=== PATIENT | male | born 1985 | race African-American/Black ===

== ENCOUNTER 2016-08-30 02:30 | Emergency (ER) | payer SELFPAY ==
[~2016-08-30] VITALS: Ht 172.7 cm; Wt 66.6 kg
[2016-08-30 02:34] VITALS: BP 150/99; PULSE 72; RESP 18; TEMP 98.1; O2SAT 100
[2016-08-30] MEDS ORDERED: LIDOCAINE 2% JELLY 30 ML TUBE TOPICAL ONE (04:00)
[2016-08-30] MEDS ORDERED: HYDR2.5%T RECTAL (04:04)
[2016-08-30] MEDS ORDERED: KAOP240C PO (04:05)
--- NOTE | 2016-08-30 04:07 | PD ---
HPI Chief Complaint: Bleeding Time Seen by Provider: 03:38 Travel History International Travel<30 days: No Contact w/Intl Traveler<30days: No Traveled to known affect area: No History of Present Illness HPI The patient is a 31-year-old male that states he has had rectal pain and bleeding for over a month. 2 weeks ago he went to [facility] and they gave him Anusol suppositories. He did not buy these because they cost too much. He comes in tonight because of the pain. They told him at [facility] that he had a hemorrhoid. The patient states that when he has a bowel movement there is a "bubble" that sticks out and is very painful. The bleeding is minimal. He is mostly concerned about the pain. [facility] Past Medical History Medical History: Denies Significant Hx Diabetes: No Headaches: Yes Immune Disorder: No Migraines: Yes Tetanus Vaccination: > 5 Years Influenza Vaccination: Yes Past Surgical History Surgical History: No Previous Surgery Social History Alcohol Use: Yes (OCCAS) Tobacco Use: Yes (1/2 PPD) Substance Use: Yes (WEED) Allergies-Medications (Allergen,Severity, Reaction): Coded Allergies: No Known Allergies (Verified , 08/30/16) Reported Meds & Prescriptions Reported Meds & Active Scripts Active No Active Prescriptions or Reported Medications Review of Systems Except as stated in HPI: all other systems reviewed are Neg Physical Exam Narrative GENERAL: Well-nourished, well-developed patient in moderate apparent distress with his rectal pain. His vital signs show blood pressure 150/99 but otherwise normal. SKIN: Focused skin assessment warm/dry. HEAD: Normocephalic. EYES: No scleral icterus. No injection or drainage. NECK: Supple, trachea midline. No JVD or lymphadenopathy. CARDIOVASCULAR: Regular rate and rhythm without murmurs, gallops, or rubs. RESPIRATORY: Breath sounds equal bilaterally. No accessory muscle use. GASTROINTESTINAL: Abdomen soft, non-tender, nondistended. MUSCULOSKELETAL: No cyanosis, or edema. BACK: Nontender without obvious deformity. No CVA tenderness. RECTAL EXAM: No masses or hemorrhoids are seen externally. It is a normal external hemorrhoidal exam. No blood is noticed. I could not introduce my finger in the rectum more than 2 cm because of pain. There did seem to be a mass on the left. No blood is noticed after I did this. The patient experienced severe pain. Data Data Last Documented VS Vital Signs Date Time Temp Pulse Resp B/P Pulse Ox O2 Delivery O2 Flow Rate FiO2 08/30/16 02:34 98.1 72 18 150/99 100 MDM Medical Decision Making Medical Screen Exam Complete: Yes Emergency Medical Condition: Yes Medical Record Reviewed: Yes Differential Diagnosis Internal hemorrhoid, rectal fissure, perirectal abscess, rectal prolapse Narrative Course Unfortunately, the external exam of the anus is normal. I cannot go beyond the external exam because the patient's pain. He will need to see a colorectal surgeon, we do not have the equipment here in the emergency department to go beyond the rectum. I did not see any blood on my finger and bleeding apparently is minimal with this patient. I could not feel a perirectal or anal rectal abscess. He may have a rectal fissure and may have an internal hemorrhoid. He also might have rectal prolapse with irritation. I did give the patient some lidocaine gel to try to see if this would reduce the pain when he has a bowel movement. The patient will also get a prescription for Anusol HC. He may benefit from warm sitz baths if there is an infection. Diagnosis Primary Impression: Rectal or anal pain Additional Instructions: The surface is a stool softener and this is taken once daily. Make sure you drink plenty of liquids with this medication. The Anusol HC can be put on every 6 hours, try to do it after you have a bowel movement and everything is sticking out. The lidocaine gel may reduce some pain when things are sticking out of the rectum. This problem is beyond the scope of the emergency department. It is necessary for you to follow-up with a colorectal surgeon as soon as possible. Med/Other Pt SpecificInfo: Prescription(s) given Scripts Docusate Calcium (Surfak)240 Mg [id number] Mg PO DAILY #30 CAP Ref 0 Prov:Curtis Cabral MD 08/30/16 Hydrocortisone Rectal (Anusol-Hc Rectal)2.5% Cream1 Applic RECTAL Q4-6H PRN ( ITCHING/INFLAMMATION) #30 GM Ref 0 Prov:Curtis Cabral MD 08/30/16 Disposition: 01 DISCHARGE HOME Condition: Stable Curtis Cabral MD Aug 30, 2016 04:07
== END 2016-08-30 04:12 | disposition home or self-care (01) ==
LOC: PHEFT 02:30
DX: K62.89 Other specified diseases of anus and rectum (principal); K62.5 Hemorrhage of anus and rectum; F17.200 Nicotine dependence, unspecified, uncomplicated
CPT/HCPCS: 99284

== ENCOUNTER 2017-05-12 18:59 | Emergency (ER) | payer SELFPAY ==
[~2017-05-12] VITALS: Ht 172.7 cm; Wt 69.0 kg
[~2017-05-12 18:59] MED LIST: HYDR2.5%T RECTAL; KAOP240C PO
[2017-05-12 19:21] VITALS: BP 127/77; PULSE 72; RESP 18; TEMP 98.2; O2SAT 99
[2017-05-12] MEDS ORDERED: SODIUM CHLOR 0.9% 1000 ML INJ 1,000 ML IV SCH (19:35)
--- NOTE | 2017-05-12 19:41 | PD ---
HPI Chief Complaint: Abdominal Pain Time Seen by Provider: 19:27 Travel History International Travel<30 days: No Contact w/Intl Traveler<30days: No Traveled to known affect area: No History of Present Illness HPI Patient is a quite pleasant 31-year-old male presents emergency department for evaluation of nausea vomiting and diarrhea which started an hour or 2 prior to arrival. Patient states he had generalized abdominal cramping he states his symptoms of have a do once in the past and he was told he had a viral infection but he never had abdominal cramping before. He states his symptoms are severe, waxing and waning, associated signs and symptoms and context as above PFSH Past Medical History Diabetes: No Headaches: Yes Immune Disorder: No Migraines: Yes Social History Alcohol Use: Yes (OCCAS) Tobacco Use: Yes (1/2 PPD) Substance Use: Yes (WEED) Allergies-Medications (Allergen,Severity, Reaction): Coded Allergies: No Known Allergies (Verified Adverse Reaction, Unknown, 05/12/17) Reported Meds & Prescriptions Reported Meds & Active Scripts Active Zofran Odt (Ondansetron Odt) 4 Mg Tab 4 Mg SL Q6HR PRN Review of Systems Except as stated in HPI: all other systems reviewed are Neg Physical Exam Narrative GENERAL: Well-developed well-nourished, quite pleasant, appears uncomfortable. SKIN: Focused skin assessment warm/dry. HEAD: Atraumatic. Normocephalic. EYES: Pupils equal and round. No scleral icterus. No injection or drainage. ENT: No nasal bleeding or discharge. Mucous membranes pink and moist. NECK: Trachea midline. No JVD. CARDIOVASCULAR: Regular rate and rhythm. No murmur appreciated. RESPIRATORY: No accessory muscle use. Clear to auscultation. Breath sounds equal bilaterally. GASTROINTESTINAL: Abdomen soft, non-tender, nondistended. Hepatic and splenic margins not palpable. No rebound no percussive tenderness, no CVA tenderness MUSCULOSKELETAL: No obvious deformities. No clubbing. No cyanosis. No edema. NEUROLOGICAL: Awake and alert. No obvious cranial nerve deficits. Motor grossly within normal limits. Normal speech. PSYCHIATRIC: Appropriate mood and affect; insight and judgment normal. Data Data Last Documented VS Vital Signs Date Time Temp Pulse Resp B/P (MAP) Pulse Ox O2 Delivery O2 Flow Rate FiO2 05/12/17 22:28 71 16 111/69 (83) 99 3/14/18 21:00 Room Air 05/12/17 19:21 98.2 Orders Orders Complete Blood Count With Diff (05/12/17 19:35) Comprehensive Metabolic Panel (05/12/17 19:35) Lipase (05/12/17 19:35) Urinalysis - C+S If Indicated (05/12/17 19:35) Iv Access Insert/Monitor (05/12/17 19:35) Ecg Monitoring (05/12/17 19:35) Oximetry (05/12/17 19:35) Ondansetron Inj (Zofran Inj) (05/12/17 19:45) Sodium Chlor 0.9% 1000 Ml Inj (Ns 1000 M (05/12/17 19:35) Sodium Chloride 0.9% Flush (Ns Flush) (05/12/17 19:45) Dicyclomine (Bentyl) (05/12/17 19:45) Ketorolac Inj (Toradol Inj) (05/12/17 21:15) Ed Discharge Order (05/12/17 22:17) Labs Laboratory Tests Test 05/12/17 20:00 05/12/17 20:21 White Blood Count 8.0 TH/MM3 Red Blood Count 4.63 MIL/MM3 Hemoglobin 14.1 GM/DL Hematocrit 41.5 % Mean Corpuscular Volume 89.7 FL Mean Corpuscular Hemoglobin 30.4 PG Mean Corpuscular Hemoglobin Concent 33.8 % Red Cell Distribution Width 13.2 % Platelet Count 217 TH/MM3 Mean Platelet Volume 8.6 FL Neutrophils (%) (Auto) 79.3 % Lymphocytes (%) (Auto) 9.9 % Monocytes (%) (Auto) 9.5 % Eosinophils (%) (Auto) 0.6 % Basophils (%) (Auto) 0.7 % Neutrophils # (Auto) 6.3 TH/MM3 Lymphocytes # (Auto) 0.8 TH/MM3 Monocytes # (Auto) 0.8 TH/MM3 Eosinophils # (Auto) 0.0 TH/MM3 Basophils # (Auto) 0.1 TH/MM3 CBC Comment DIFF FINAL Differential Comment Blood Urea Nitrogen 13 MG/DL Creatinine 1.10 MG/DL Random Glucose 86 MG/DL Total Protein 7.8 GM/DL Albumin 4.0 GM/DL Calcium Level 8.9 MG/DL Alkaline Phosphatase 63 U/L Aspartate Amino Transf (AST/SGOT) 16 U/L Alanine Aminotransferase (ALT/SGPT) 16 U/L Total Bilirubin LESS THAN 0.1 MG/DL Sodium Level 140 MEQ/L Potassium Level 3.9 MEQ/L Chloride Level 105 MEQ/L Carbon Dioxide Level 30.0 MEQ/L Anion Gap 5 MEQ/L Estimat Glomerular Filtration Rate 95 ML/MIN Lipase 618 U/L Urine Color YELLOW Urine Turbidity CLEAR Urine pH 6.0 Urine Specific [place] GREATER/EQUAL 1.030 Urine Protein TRACE mg/dL Urine Glucose (UA) NEG mg/dL Urine Ketones NEG mg/dL Urine Occult Blood NEG Urine Nitrite NEG Urine Bilirubin NEG Urine Urobilinogen 0.2 MG/DL Urine Leukocyte Esterase NEG Urine RBC 0-3 /hpf Urine Squamous Epithelial Cells 0-5 /hpf Urine Mucus MANY /lpf Microscopic Urinalysis Comment CULT NOT INDICATED MDM Medical Decision Making Medical Screen Exam Complete: Yes Emergency Medical Condition: Yes Differential Diagnosis Gastritis, gastroenteritis, pancreatitis, acute abdomen unlikely, Narrative Course Patient room to the emergency department, has a reassuring physical exam, skin medication is beginning to feel much better. He does admit to marijuana smoking and discussed the possibility of cyclical vomiting syndrome though more likely is viral gastroenteritis. Either way no definitive cause of his vomiting and nausea and abdominal cramping is been identified. With a benign abdomen there is no indication further workup at this time. He is stable for discharge. Discussed Intermedic management and return to ED criteria Diagnosis Primary Impression: Nausea & vomiting Additional Impression: Diarrhea Med/Other Pt SpecificInfo: Prescription(s) given Scripts Ondansetron Odt (Zofran Odt) 4 Mg Tab 4 MG SL Q6HR Y for Nausea/Vomiting, #20 TAB 0 Refills Prov: Basil Patel MD 05/12/17 Disposition: 01 DISCHARGE HOME Condition: Stable Basil Patel MD May 12, 2017 19:41
[2017-05-12] MEDS ORDERED: DICYCLOMINE HCL 10 MG CAP PO ONE (19:45)
[2017-05-12] MEDS ORDERED: SODIUM CHLORIDE 0.9% FLUSH 10 ML FLUSH IV FLUSH PRN (19:45)
[2017-05-12] MEDS ORDERED: ONDANSETRON HCL 4 MG/2 ML VIAL IVP ONE (19:45)
[2017-05-12 19:55] VITALS: BP 113/67; PULSE 68; RESP 16; O2SAT 98
[2017-05-12 20:06] LABS: AUTOMATED NEUTROPHIL # 6.3 TH/MM3 (1.8-7.7); BASOPHIL # 0.1 TH/MM3 (0-0.2); BASOPHIL % 0.7 % (0.0-2.0); EOSINOPHIL % 0.6 % (0.0-4.0); HEMATOCRIT 41.5 % (39.0-51.0); HEMOGLOBIN 14.1 GM/DL (13.0-17.0); LYMPH % 9.9 % (9.0-44.0); LYMPHOCYTE # 0.8 TH/MM3 (1.0-4.8); MEAN CELL VOLUME 89.7 FL (80.0-100.0); MEAN CORPUSCULAR HEMOGLOBIN 30.4 PG (27.0-34.0); MEAN CORPUSCULAR HGB CONC 33.8 % (32.0-36.0); MEAN PLATELET VOLUME 8.6 FL (7.0-11.0); MONO % 9.5 % (0.0-8.0); MONOCYTE # 0.8 TH/MM3 (0-0.9); NEUT % 79.3 % (16.0-70.0); PLATELET COUNT 217 TH/MM3 (150-450); RED BLOOD COUNT 4.63 MIL/MM3 (4.50-5.90); RED CELL DISTRIBUTION WIDTH 13.2 % (11.6-17.2)
[2017-05-12 20:18] LABS: CHLORIDE 105 MEQ/L (98-107); SODIUM (NA) 140 MEQ/L (136-145)
[2017-05-12 20:21] LABS: CALCIUM 8.9 MG/DL (8.5-10.1)
[2017-05-12 20:22] LABS: BLOOD UREA NITROGEN 13 MG/DL (7-18); GLUCOSE,RANDOM 86 MG/DL (74-106)
[2017-05-12 20:24] LABS: ALT (GPT) 16 U/L (12-78)
[2017-05-12 20:25] LABS: AST (GOT) 16 U/L (15-37); GLOMERULAR FILTRATION RATE 95 ML/MIN (>89)
[2017-05-12 20:26] LABS: TOTAL BILIRUBIN ADULT LESS THAN 0.1 MG/DL (0.2-1.0); TOTAL PROTEIN 7.8 GM/DL (6.4-8.2)
[2017-05-12 20:28] LABS: ALKALINE PHOSPHATASE 63 U/L (45-117)
[2017-05-12 20:34] LABS: BILIRUBIN, URINE NEG (NEG); BLOOD, URINE NEG (NEG); GLUCOSE,URINE NEG (NEG); KETONE, URINE NEG (NEG); NITRITE,URINE NEG (NEG); URINE COLOR YELLOW (YELLW/STRAW); URINE LEUKOCYTE ESTERASE NEG (NEG)
[2017-05-12 20:49] LABS: MUCUS URINE MANY /lpf (OCC); RBC, URINE 0-3 /hpf (0-3); SQUAMOUS EPITHELIAL CELL URINE 0-5 /hpf (0-5)
[2017-05-12 21:00] VITALS: BP 117/71; PULSE 68; RESP 16; O2SAT 98
[2017-05-12] MEDS ORDERED: KETOROLAC TROMETHAMINE 30 MG/ML (IVP) VIAL IV PUSH ONE (21:15)
[2017-05-12] MEDS ORDERED: ZOFR4TAB3 SL (22:17)
[2017-05-12 22:28] VITALS: BP 111/69
== END 2017-05-12 22:32 | disposition home or self-care (01) ==
LOC: PHED 18:59
DX: R11.2 Nausea with vomiting, unspecified (principal); R19.7 Diarrhea, unspecified; R10.84 Generalized abdominal pain; F12.90 Cannabis use, unspecified, uncomplicated; F17.200 Nicotine dependence, unspecified, uncomplicated
CPT/HCPCS: 80053; 81001; 83690; 85025; 96361; 96374; 96375; 99284; J1885; J2405; J7030

== ENCOUNTER 2017-05-14 16:09 | Emergency (ER) | payer SELFPAY ==
[~2017-05-14] VITALS: Ht 172.7 cm; Wt 68.0 kg
[~2017-05-14 16:09] MED LIST changes: -HYDR2.5%T RECTAL; -KAOP240C PO; +ZOFR4TAB3 SL
[2017-05-14 16:54] VITALS: BP 120/58; PULSE 77; RESP 18; TEMP 98.6; O2SAT 99
== END 2017-05-14 20:30 | disposition left against medical advice (07) ==
LOC: NED 16:09
DX: R19.8 Other specified symptoms and signs involving the digestive system and abdomen (principal)
CPT/HCPCS: 99281